=== PATIENT | male | born 1980 | race Caucasian/White ===

== ENCOUNTER 2018-02-21 11:24 | Emergency (ER) | payer MEDICAID ==
[~2018-02-21] VITALS: Ht 165.1 cm; Wt 102.1 kg
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
[2018-02-21] MEDS ORDERED: PIPERACILLIN /TAZOBACTAM 3.375 G in IV D5W 50 ML IV STA (12:08)
--- NOTE | 2018-02-21 12:15 | NUR ---
CALLED [facility] TO PRESENT PT FOR TRAUMA TRANSFER, DR. STEPHENS DECLINES PT
[2018-02-21] MEDS ORDERED: ONDANSETRON HCL/PF 4 MG/2 ML VIAL ONE (12:18)
[2018-02-21] MEDS ORDERED: MORPHINE SULFATE INJ 4 MG/ML DISP.SYRIN ONE (12:19)
[2018-02-21 12:22] LABS: BASOPHILS # (AUTO) 0.1 /CMM (0.0-0.2); BASOPHILS % (AUTO) 2.2 % (0.0-2.0); EOSINOPHILS % (AUTO) 2.5 % (0.0-6.0); HEMATOCRIT 49 % (39-51); HEMOGLOBIN 17.2 g/dL (13.5-17.5); LYMPHOCYTES # (AUTO) 1.5 /CMM (0.8-4.8); LYMPHOCYTES % (AUTO) 24.6 % (20.0-44.0); MEAN CORPUSCULAR HGB CONC 35 g/dl (31.0-36.0); MEAN CORPUSCULAR VOLUME 92 fL (80-96); MONOCYTES # (AUTO) 0.4 /CMM (0.1-1.30); MONOCYTES % (AUTO) 7.2 % (2.0-12.0); NEUTROPHILS % (AUTO) 63.5 % (43.0-81.0); PLATELET COUNT (AUTO) 207 /CMM (150-450); RDW COEFFICIENT OF VARIATION 12.3 (11.5-15.0); RED BLOOD CELL COUNT(AUTO) 5.34 MIL/uL (4.5-6.0); WHITE BLOOD COUNT (AUTO) 6.2 K/uL (4.3-11.0)
--- NOTE | 2018-02-21 12:22 | NUR ---
CALLED [facility] WITH [facility] TO PRESENT PT FOR TRANSFER, NO ANSWER
--- NOTE | 2018-02-21 12:26 | NUR ---
CALLED [facility] AND SPOKE TO WAYNE AT TRANSFER CENTER. [employer] FAXED
[2018-02-21] MEDS ORDERED: MORPHINE SULFATE INJ 2 MG/ML DISP.SYRIN IV ONE (12:30)
[2018-02-21] MEDS ORDERED: ONDANSETRON HCL/PF 4 MG/2 ML VIAL IV ONE (12:30)
[2018-02-21] MEDS ORDERED: IV NS 0.9% 1,000 ML BAG IV ONE (12:30)
[2018-02-21 12:32] LABS: POTASSIUM 3.6 mmol/L (3.5-5.1)
[2018-02-21 12:35] LABS: INR 0.89 (0.85-1.15)
[2018-02-21 12:37] LABS: ALBUMIN 4.1 g/dL (3.4-5.0); BILIRUBIN,TOTAL 0.9 mg/dL (0.2-1.0); TOTAL PROTEIN, SERUM 8.2 g/dL (6.4-8.2)
--- NOTE | 2018-02-21 12:41 | NUR ---
PT BACK FROM CT
--- NOTE | 2018-02-21 13:05 | NUR ---
[facility]KA CODE 3 RIG SET UP WITH [facility] - TRIP# [id number] - BLS CREW ALREADY ON-SCENE
--- NOTE | 2018-02-21 13:15 | NUR ---
REPORT GIVEN TO ROBERTA VALENCIA FOR CONT OF CARE. PT IS GOING TO [facility] EMERGENCY DEPARTMENT
[2018-02-21 13:19] VITALS: BP 137/80
--- NOTE | 2018-02-21 13:26 | NUR ---
REPORT GIVEN TO [id number], PT IS BEING PREPARED TO [place] [facility] [place]
== END 2018-02-21 13:58 | disposition short-term general hospital (02) ==
LOC: ER 11:28
DX: S02.413A LeFort III fracture, initial encounter for closed fracture (principal); S02.40FA Zygomatic fracture, left side, initial encounter for closed fracture; W11.XXXA Fall on and from ladder, initial encounter; Y93.89 Activity, other specified; Y92.89 Other specified places as the place of occurrence of the external cause; Y99.8 Other external cause status
CPT/HCPCS: 36415; 70450; 70486; 80053; 85025; 85610; 85730; 96365; 96375; 99285; A4606; J2270; J2405; J2543; J7030; J7060; Z7610

== ENCOUNTER 2019-05-20 21:49 | Emergency (ER) | payer MEDICAID ==
[~2019-05-20] VITALS: Ht 162.6 cm; Wt 90.7 kg
[2019-05-20] MEDS ORDERED: ONDANSETRON HCL/PF 4 MG/2 ML VIAL ONE (21:58)
[2019-05-20] MEDS ORDERED: ONDANSETRON HCL/PF 4 MG/2 ML VIAL IM ONE (22:00)
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
[2019-05-20] MEDS ORDERED: IV NS 0.9% 1,000 ML BAG IV ONE (22:30)
[2019-05-20 22:43] LABS: BASOPHILS % (AUTO) 0.5 % (0.0-2.0); EOSINOPHILS % (AUTO) 0.7 % (0.0-6.0); HEMATOCRIT 45 % (39-51); HEMOGLOBIN 15.7 g/dL (13.5-17.5); LYMPHOCYTES # (AUTO) 2.8 /CMM (0.8-4.8); LYMPHOCYTES % (AUTO) 31.1 % (20.0-44.0); MEAN CORPUSCULAR HGB CONC 35 g/dl (31.0-36.0); MEAN CORPUSCULAR VOLUME 95 fL (80-96); MONOCYTES # (AUTO) 0.5 /CMM (0.1-1.30); NEUTROPHILS # (AUTO) 5.5 /CMM (1.8-8.9); NEUTROPHILS % (AUTO) 61.7 % (43.0-81.0); PLATELET COUNT (AUTO) 181 /CMM (150-450); RED BLOOD CELL COUNT(AUTO) 4.75 MIL/uL (4.5-6.0); WHITE BLOOD COUNT (AUTO) 8.9 K/uL (4.3-11.0)
[2019-05-20 22:49] LABS: CALCIUM, SERUM 7.7 mg/dL (8.5-10.1); CREATININE 0.8 mg/dL (0.6-1.3); POTASSIUM 3.3 mmol/L (3.5-5.1)
[2019-05-20 22:57] LABS: ALBUMIN 3.9 g/dL (3.4-5.0); BILIRUBIN,DIRECT 0.1 mg/dL (0.0-0.2); BILIRUBIN,TOTAL 0.3 mg/dL (0.2-1.0); TOTAL PROTEIN, SERUM 7.5 g/dL (6.4-8.2)
--- NOTE | 2019-05-21 04:47 | NUR ---
PATIENT AMBULATED TO RESTROOM W.ASSISTANCE
[2019-05-21 06:14] VITALS: BP 121/67
== END 2019-05-21 06:15 | disposition home or self-care (01) ==
LOC: ER 21:50
DX: F10.129 Alcohol abuse with intoxication, unspecified (principal); Y90.8 Blood alcohol level of 240 mg/100 ml or more
CPT/HCPCS: 36415; 80048; 80076; 80307; 85025; 96372; 99283; J2405; J7030; G0480

== ENCOUNTER 2019-05-23 11:56 | Emergency (ER) | payer MEDICAID ==
[~2019-05-23] VITALS: Ht 165.1 cm; Wt 87.5 kg
--- NOTE | 2019-05-23 12:05 | NUR ---
patient came in to the ER c/o Dizzy "Started 4days ago. When laying in bed feel ok when getting up dizzy". On room air, breathing evenly and unlabored. kept comfortable, will continue to monitor accordingly.
[2019-05-23] MEDS ORDERED: MECLIZINE HCL 25 MG TABLET ONE (12:22)
[2019-05-23] MEDS ORDERED: DEXAMETHASONE SOD PHOSPHATE 10 MG/ML VIAL ONE (12:22)
[2019-05-23] MEDS ORDERED: KETOROLAC TROMETHAMINE INJ 30 MG/ML VIAL ONE (12:22)
[2019-05-23] MEDS ORDERED: KETOROLAC TROMETHAMINE INJ 30 MG/ML VIAL IV ONE (12:30)
[2019-05-23] MEDS ORDERED: MECLIZINE HCL 12.5 MG TABLET PO ONE (12:30)
[2019-05-23] MEDS ORDERED: IV NS 0.9% 1,000 ML BAG IV ONE (12:30)
[2019-05-23] MEDS ORDERED: DEXAMETHASONE SOD PHOSPHATE 4 MG/ML VIAL IV ONE (12:30)
[2019-05-23 13:30] VITALS: BP 145/89
--- NOTE | 2019-05-23 13:31 | NUR ---
Patient discharged to home in stable condition. Written and verbal after care instructions given. Patient verbalizes understanding of instruction.IV removed. Catheter intact and site benign. Pressure and 4x4 applied to site. No bleeding noted.
== END 2019-05-23 13:31 | disposition home or self-care (01) ==
LOC: ER 11:59
DX: R42 Dizziness and giddiness (principal); R51 Headache
CPT/HCPCS: 96361; 96374; 96375; 99283; J1100; J1885; J7030; J8597

== ENCOUNTER 2020-12-14 19:52 | Emergency (ER) | payer SELFPAY ==
[~2020-12-14] VITALS: Ht 165.1 cm; Wt 95.3 kg
--- NOTE | 2020-12-14 20:50 | NUR ---
PT AAOX4. BIBSELF C/O ABD PAIN. DENIES NAUSEA AND V. PT STATES HE WAS LIFTING BOXES EARLIER TODAY AND FELT PAIN. PT PLACED IN BED 9 ON MONITOR AND PULSE OX. AWAITING ER MD FOR EVAL.
--- NOTE | 2020-12-14 20:58 | NUR ---
URINE COLLECTED SENT TO LAB
[2020-12-14 22:37] LABS: BASOPHILS # (AUTO) 0.1 /CMM (0.0-0.2); BASOPHILS % (AUTO) 0.7 % (0.0-2.0); EOSINOPHILS % (AUTO) 1.8 % (0.0-6.0); HEMATOCRIT 44 % (39-51); LYMPHOCYTES # (AUTO) 2.4 /CMM (0.8-4.8); LYMPHOCYTES % (AUTO) 26.7 % (20.0-44.0); MEAN CORPUSCULAR HGB CONC 34 g/dl (31.0-36.0); MEAN CORPUSCULAR VOLUME 89 fL (80-96); MONOCYTES # (AUTO) 0.6 /CMM (0.1-1.30); MONOCYTES % (AUTO) 6.5 % (2.0-12.0); NEUTROPHILS # (AUTO) 5.7 /CMM (1.8-8.9); NEUTROPHILS % (AUTO) 64.3 % (43.0-81.0); PLATELET COUNT (AUTO) 182 /CMM (150-450); RED BLOOD CELL COUNT(AUTO) 4.91 MIL/uL (4.5-6.0); WHITE BLOOD COUNT (AUTO) 8.9 K/uL (4.3-11.0)
[2020-12-14 22:47] LABS: CALCIUM, SERUM 8.7 mg/dL (8.5-10.1); CREATININE 0.9 mg/dL (0.6-1.3); POTASSIUM 3.7 mmol/L (3.5-5.1)
[2020-12-14 22:56] LABS: BILIRUBIN,URINE NEGATIVE (NEGATIVE); COLOR,URINE YELLOW (YELLOW); LEUKOCYTE ESTERASE ,URINE NEGATIVE (NEGATIVE); NITRITE, URINE NEGATIVE (NEGATIVE); PROTEIN,URINE NEGATIVE (NEGATIVE); UGLUCOSE NEGATIVE (NEGATIVE); UROBILINOGEN,URINE 0.2 EU/dL (0.2)
[2020-12-14 22:59] LABS: ALBUMIN 3.9 g/dL (3.4-5.0); BILIRUBIN,DIRECT 0.1 mg/dL (0.0-0.2); BILIRUBIN,TOTAL 0.5 mg/dL (0.2-1.0); TOTAL PROTEIN, SERUM 7.7 g/dL (6.4-8.2)
[2020-12-14 23:07] LABS: BACTERIA,URINE None seen /HPF (None Seen); RBC,URINE 0-2 /HPF (0-2); SQUAMOUS EPITHELIAL CELL,UR Few /HPF (None Seen); WBC,URINE 0-2 /HPF (0-3)
--- NOTE | 2020-12-14 23:58 | NUR ---
LESLEY RAYO TALKING TO DR. CHELSEA Morataya REGARDING PT.
[2020-12-15] MEDS ORDERED: HYDR-3976 GT (00:02)
--- NOTE | 2020-12-15 00:02 | NUR ---
PT DENIES PAIN, VSS.
--- NOTE | 2020-12-15 00:21 | NUR ---
Patient discharged to home in stable condition. Written and verbal after care instructions given. Patient verbalizes understanding of instruction and RX.
[2020-12-15 00:23] VITALS: BP 125/72
== END 2020-12-15 00:23 | disposition home or self-care (01) ==
LOC: ER 19:57
DX: K42.9 Umbilical hernia without obstruction or gangrene (principal); F10.10 Alcohol abuse, uncomplicated; Y90.9 Presence of alcohol in blood, level not specified; Z79.899 Other long term (current) drug therapy
CPT/HCPCS: 36415; 80048-TC; 80076-TC; 81001; 83690-TC; 85025-TC